=== PATIENT | female | born 2000 | race Caucasian/White ===

== ENCOUNTER 2019-05-12 11:22 | Emergency (ER) | payer OTHER ==
[~2019-05-12] VITALS: Ht 162.6 cm; Wt 97.5 kg
[2019-05-12 11:50] LABS: HEMATOCRIT 39.3 % (37.0-47.0); HEMOGLOBIN 13.3 gm/dL (12.0-15.0); MCH 27.5 pg (26.0-34.0); MCHC 33.9 g/dL (28.0-37.0); RBC 4.84 mil/uL (4.20-5.00); RDW 14.6 % (10.5-14.5); WBC 12.3 thou/uL (4.0-11.0)
[2019-05-12 12:08] LABS: APTT 26.7 Seconds (24.5-32.8); PROTIME 10.3 Seconds (9.3-11.4)
[2019-05-12 12:20] LABS: CALCIUM 9.1 mg/dL (8.5-10.1); CREATININE 0.9 mg/dL (0.6-1.0); POTASSIUM 3.8 mmol/L (3.5-5.1)
[2019-05-12 12:27] LABS: ALBUMIN 3.8 g/dL (3.4-5.0); TOTAL BILIRUBIN 0.5 mg/dL (<0.1-1.0); TOTAL PROTEIN 7.2 g/dL (6.4-8.2)
[2019-05-12 13:23] VITALS: BP 141/81
[2019-05-12] MEDS ORDERED: FLEXERIL PO (13:52)
[2019-05-12] MEDS ORDERED: IBUPROFEN 600600 M1 PO (13:52)
== END 2019-05-12 13:53 | disposition home or self-care (01) ==
LOC: ER 11:22
PROVIDERS: Emergency Medicine Emergency Medical Services
DX: S40.012A Contusion of left shoulder, initial encounter (principal); M79.672 Pain in left foot; R11.2 Nausea with vomiting, unspecified; V49.88XA Car occupant (driver) (passenger) injured in other specified transport accidents, initial encounter; Y93.89 Activity, other specified; Y92.89 Other specified places as the place of occurrence of the external cause; Y99.8 Other external cause status